=== PATIENT | male | born 1980 | race Caucasian/White ===

== ENCOUNTER 2024-12-27 23:57 | Emergency (ER) | payer SELFPAY ==
[2024-12-28 00:17] VITALS: BP 125/65; PULSE 95; RESP 18; TEMP 36.5; O2SAT 94; BMI 27.8
--- NOTE | 2024-12-28 03:00 | PC.NURSE ---
at this time this pt lisseth to this RN requesting when he would be seen by a provider, this RN educated the pt that the provider will be seeing him shortly. Pt stated If the doctor doesn't come see me soon I am leaving. tub operator made aware, pt sitting in hospital stretcher waiting to be seen by provider.
--- NOTE | 2024-12-28 03:30 | PC.NURSE ---
pt seen by the provider and medication orders placed, this RN attempted to medicate this pt per MAR, pt stated 'I want something stronger than Tylenol , pt became adamant on leaving AMA unless given something stronger for pain, no new orders at this time, pt escorted out of ED via security. city planning aide aware
--- NOTE | 2024-12-28 03:30 | PC.NURSE ---
this RN attempted to medicate pt per MAR, when told the pt is recieving Ibuprofen and Tylenol for pain the pt refused the medication stating he wants something stronger than tylenol
--- NOTE | 2024-12-28 04:52 | ED.GENADULT ---
HPI - General Adult General Chief complaint: Skin/Abscess/Foreign Body Stated complaint: Lower Extremity inj/pain Time Seen by Provider: 12/28/24 03:11 Source: patient Limitations: no limitations History of Present Illness ED Provider: Kathe Cabral PA-C HPI narrative: 44-year-old male presents with left lower extremity pain x1 day. Patient noticed subtle swelling superior to the ankle, worse with walking. Denies injury, or fever. Related Data Allergies Allergy/AdvReac Type Severity Reaction Status Date / Time No Known Allergies Allergy Verified 12/28/24 00:17 Review of Systems Review of Systems: Yes all other systems are reviewed and are negative Constitutional: Constitutional: Denies fatigue and Denies fever(s) Musculoskeletal: Musculoskeletal: Denies arthralgias and Denies joint swelling Integumentary/Breasts: Skin/Breast: Denies erythema, Denies skin ulcer and Denies wounds Endocrine: Endocrine: Denies fatigue PMFSH Past Medical History Attestation statement: The following information was validated with the patient. Social History Social History Smoked in Last 30 Days: Yes Use of substances other than those prescribed or required for medical reasons: Yes Substance Use Type: Marijuana Substance Use Frequency: Daily Last Used Substance: Hours (ago) Advance Directives: No Advance Directives Information Provided: Yes Physical Exam ED Vital Signs: Vital Signs - 24 hr 12/28/24 00:17 Temperature 97.7 F Pulse Rate 95 Respiratory Rate 18 Blood Pressure 125/65 Pulse Oximetry 94 Oxygen Delivery Method Room Air BMI result Body Mass Index 27.8 Const Other: Alert Orientation/consciousness: patient oriented x3 Resp Effort & Inspection: normal respiratory effort Cardio Other: Normal peripheral perfusion no edema Skin Other: Warm dry no rash Neuro General: patient oriented x3, gait normal, no focal motor deficits and CN's II-XI intact bilaterally Extrem Other: Contusion noted superior to the ankle over anterior ricardo, subtly swollen with a subtle ecchymosis Psych Other: Cooperative Medications Administered Discontinued Medications Generic Name Dose Route Start Last Admin Trade Name Freq PRN Reason Stop Dose Admin Acetaminophen 975 mg 12/28/24 03:26 12/28/24 03:30 Acetaminophen 325 Mg Tablet PO 12/28/24 03:27 Not Given ONCE ONE Ibuprofen 600 mg 12/28/24 03:26 12/28/24 03:30 Ibuprofen 600 Mg Tablet PO 12/28/24 03:27 Not Given ONCE ONE Medical Decision Making Medical Decision Making [facility] Narrative: 44-year-old male presents with left lower extremity pain x1 day. Patient noticed subtle swelling superior to the ankle, worse with walking. Denies injury, or fever. No known chronic issues History: Per patient I have considered the following differential diagnoses: Contusion, sprain, fracture, dislocation, cellulitis Plan: Patient has a contusion, it is not cellulitis, he is ambulatory there has been no trauma to his knowledge, no indication for labs or imaging giving him Tylenol and ibuprofen Differential Diagnosis Differential Diagnoses: The differential diagnosis associated with the presentation includes See medical decision-making Admission/Observation Consideration of admission/observation: Escalation of care including admission/observation considered Not applicable Discharge Plan Discharge Clinical Impression: Contusion Patient Disposition: Home, Self-Care Instructions: Contusion in Adults (ED) Additional Instructions: It appears that you have a contusion, this is another word for a bruise. See home care instructions. You can use [id number] ibuprofen 600 milligrams taken every 6 hours, with [id number] Tylenol 1000 milligrams taken every 8 hours. Interventions: LWBS Worksheet Last Done: 12/28/24 04:56 Print Language: [place]
[2024-12-28 05:50] VITALS: BP 125/65; PULSE 95; RESP 18; TEMP 36.5; O2SAT 94
--- NOTE | 2024-12-28 05:50 | PC.NURSE ---
patient originally thought to have left with out being seen. patient was dc by provider. dc assessment updated.
== END 2024-12-28 05:51 | disposition home or self-care (01) ==
PROVIDERS: Emergency Provider Emergency Medicine
DX: S80.12XA Contusion of left lower leg, initial encounter (principal); X58.XXXA Exposure to other specified factors, initial encounter; Y93.9 Activity, unspecified; Y92.9 Unspecified place or not applicable; Y99.9 Unspecified external cause status
CPT/HCPCS: 99283

== ENCOUNTER 2024-12-29 14:28 | Emergency (ER) | payer SELFPAY ==
--- NOTE | ~2024-12-29 | XR_ITS ---
EXAMINATION: XR TIBIA AND FIBULA, LEFT CLINICAL INFORMATION: Distal anterior pain, history of remote hammer injury . COMPARISON: None available. TECHNIQUE: AP and lateral views of the left tibia and fibula were obtained. FINDINGS: The bones and soft tissues are normal. No fracture, dislocation, or suspicious bone lesion. The imaged knee and ankle joints appear intact and normal. XR/XR tibia fibula LT 2V IMPRESSION: Normal left tibia and fibula. Electronically signed by: Petr Gutiérrez MD 12/29/2024 02:49 PM EDT
[2024-12-29 14:33] VITALS: BP 121/72; PULSE 86; RESP 16; TEMP 37; O2SAT 97; BMI 26.6
--- NOTE | 2024-12-29 14:34 | ED_ITS ---
HPI - General Adult General Chief complaint: Extremity Problem Stated complaint: L knee to ankle pain Time Seen by Provider: 12/29/24 19:56 Source: patient Limitations: no limitations History of Present Illness ED Provider: Kathe Cabral PA-C HPI narrative: 44-year-old male presents with left lower extremity pain x1 day. Patient noticed subtle swelling superior to the ankle, worse with walking. Denies injury, or fever. Patient was seen in the emergency department the other day for the exact same presentation there was no change in symptoms. Related Data Allergies Allergy/AdvReac Type Severity Reaction Status Date / Time No Known Allergies Allergy Verified 12/29/24 14:36 Review of Systems Review of Systems: Yes all other systems are reviewed and are negative Constitutional: Constitutional: Denies fatigue and Denies fever(s) Cardiovascular: Cardiovascular: Denies leg edema Musculoskeletal: Musculoskeletal: Denies arthralgias and Denies joint swelling Endocrine: Endocrine: Denies fatigue PMFSH Past Medical History Attestation statement: The following information was validated with the patient. Social History Social History Substance Use Type: Marijuana Advance Directives: No Advance Directives Information Provided: No Physical Exam ED Vital Signs: Vital Signs - 24 hr 12/29/24 14:33 12/29/24 18:01 Temperature 98.6 F 97.8 F Pulse Rate 86 68 Respiratory Rate 16 16 Blood Pressure 121/72 120/69 Pulse Oximetry 97 98 Oxygen Delivery Method Room Air Room Air BMI result Body Mass Index 26.6 Const Other: Alert well-appearing Orientation/consciousness: patient oriented x3 Resp Other: Normal peripheral perfusion Skin Other: Warm dry no rash Neuro General: patient oriented x3, gait normal, no focal motor deficits and CN's II- XI intact bilaterally Extrem Other: No swelling, no erythema no warmth, the patient has a contusion no change from the other day Psych Other: Cooperative Course Course Course Narrative: This is a rapid medical exam performed by Carmen Barker NP: Additional HPI, ROS, PE not included below will be deferred to primary provider. Patient is a 44y/o M presenting with complaint of left lower leg pain for the past few days. Feels the area is swollen, very painful. States he accidentally hit that area with a hammer 3 yrs ago, never had xrays. Pain is to anterior distal aspect of lower leg. Plan: xray Medical Decision Making Medical Decision Making [facility] Narrative: 44-year-old male presents with left lower extremity pain x1 day. Patient noticed subtle swelling superior to the ankle, worse with walking. Denies injury, or fever. Patient was seen in the emergency department the other day for the exact same presentation there was no change in symptoms. No chronic issues History: Per patient I have considered the following differential diagnoses: Fracture, dislocation, contusion, cellulitis, sprain Plan: Patient was seen in the ED for exact same presentation, he has a contusion, x-ray ordered today is negative I have independently reviewed the following tests: X-ray right tib-fib: XR/XR tibia fibula LT 2V IMPRESSION: Normal left tibia and fibula. Differential Diagnosis Differential Diagnoses: The differential diagnosis associated with the presentation includes See medical decision-making Admission/Observation Consideration of admission/observation: Escalation of care including admi ssion/observation considered Not applicable Radiology Impression Discussion of test interpretation with radiology: I have reviewed the radiologist's reading. Discharge Plan Discharge Clinical Impression: Contusion of leg, right Patient Disposition: Home, Self-Care Instructions: Contusion in Adults (ED) Additional Instructions: The x-ray of the leg is negative for fracture or dislocation, as you were told the other day you have a bruise. See home care instructions. Follow up with your primary care as needed Print Language: Tajik
[2024-12-29 18:01] VITALS: BP 120/69; PULSE 68; RESP 16; TEMP 36.6; O2SAT 98
[2024-12-29 20:28] VITALS: BP 120/69; PULSE 68; RESP 16; TEMP 36.6; O2SAT 98
== END 2024-12-29 20:29 | disposition home or self-care (01) ==
PROVIDERS: Emergency Provider Emergency Medicine Emergency Medical Services
DX: S80.12XA Contusion of left lower leg, initial encounter (principal); M79.605 Pain in left leg; X58.XXXA Exposure to other specified factors, initial encounter; Y93.9 Activity, unspecified; Y92.9 Unspecified place or not applicable; Y99.8 Other external cause status
CPT/HCPCS: 73590; 99282; 99283

== ENCOUNTER → 2024-12-29 14:36 | Outpatient (BNV) | payer SELFPAY | PROVIDERS: Visit Provider Radiology Diagnostic Radiology | DX: M79.662 Pain in left lower leg (principal) | CPT/HCPCS: 73590 ==